=== PATIENT | male | born 1985 | race Caucasian/White ===

== ENCOUNTER 2016-10-14 21:26 | Emergency (ER) | payer OTHER ==
[~2016-10-14] VITALS: Ht 182.9 cm; Wt 86.4 kg
[~2016-10-14 21:26] MED LIST: ABILIFY 15MG TA15 MG; ADDERALL30 MG PO; AMBIEN10 MG PO; AMOXICILLIN 50500 MG PO; BACTRIM DS 8001 TAB PO; CELEXA; DESYREL 50MG50 MG PO; NAPROSYN500 MG PO; NEXIUM 20MG20 MG PO; NORCO 325 MG-51 TAB PO; PERCOCET 325 MG1 TA2 PO; SOMA; VICODIN 5/5001 UDTAB PO; VISTARIL50 MG PO; ZOFRAN ODT4 MG PO
[2016-10-14 21:28] VITALS: BP 134/92; PULSE 86; TEMP 98.1
[2016-10-14] MEDS ORDERED: DOXYCYCLINE 10100 MG PO (23:10)
== END 2016-10-14 23:39 | disposition home or self-care (01) ==
LOC: COL.ER 21:26
DX: L03.031 Cellulitis of right toe (principal); Z86.14 Personal history of Methicillin resistant Staphylococcus aureus infection

== ENCOUNTER 2016-12-08 23:07 | Emergency (ER) | payer OTHER ==
[~2016-12-08] VITALS: Ht 182.9 cm; Wt 86.4 kg
[~2016-12-08 23:07] MED LIST changes: +DOXYCYCLINE 10100 MG PO
[2016-12-08 23:11] VITALS: TEMP 97.9
[2016-12-08 23:52] LABS: BASO # 0.1 (0.0-0.2); BASO % 0.7 % (0.0-2.0); EOS # 0.6 (0.0-0.7); GRAN % 53.8 % (42.2-75.2); HEMATOCRIT 42.7 % (42.0-52.0); HEMOGLOBIN 14.9 g/dl (13.5-18.0); LYMPH # 2.2 (1.2-3.4); MEAN CELL VOLUME 85 fl (80.0-100.0); MEAN CORPUSCULAR HEMOGLOBIN 30 pg (27.0-31.0); MEAN CORPUSCULAR HGB CONC 35 g/dl (33.0-37.0); MEAN PLATELET VOLUME 10.2 fl (7.4-10.4); MONO # 0.6 (0.1-0.6); MONO % 8.4 % (1.7-9.3); PLATELET COUNT 212 K/mm3 (130-400); RED BLOOD COUNT 5.05 M/mm3 (4.20-5.60); REDCELL DISTRIBUTION WIDTH-CV 13.2 % (11.5-14.5); WHITE BLOOD COUNT 7.4 K/mm3 (4.8-10.8)
[2016-12-09 00:02] LABS: PH 5 (5-8); SQUAMOUS EPITHELIAL None Seen /hpf; URINE APPEARANCE Clear; URINE BACTERIA None Seen /hpf; URINE BILIRUBIN Negative (NEGATIVE); URINE BLOOD Negative (NEGATIVE); URINE COLOR Yellow; URINE GLUCOSE Negative (NEGATIVE); URINE KETONE Negative (NEGATIVE); URINE RBC 0-2 /hpf; URINE UROBILINOGEN Negative (NEGATIVE); URINE WBC 0-2 /hpf
[2016-12-09 00:09] LABS: ADJUSTED CALCIUM 8.9 mg/dL (8.4-10.2); ALBUMIN 4.3 gm/dL (3.5-5.0); BILIRUBIN,TOTAL 0.5 mg/dL (0.0-1.0); CALCIUM 9.1 mg/dL (8.4-10.2); CREATININE, serum 0.87 mg/dL (0.66-1.25); POTASSIUM 3.5 mmol/L (3.4-5.0); TOTAL PROTEIN 7.4 gm/dL (6.4-8.2)
[2016-12-09] MEDS ORDERED: VOLTAREN 75 DR75 MG PO (00:25)
[2016-12-09 00:43] VITALS: BP 136/85; PULSE 97
== END 2016-12-09 00:46 | disposition home or self-care (01) ==
LOC: COL.ER 23:07
PROVIDERS: Emergency Medicine
DX: M54.5 Low back pain (principal); R10.31 Right lower quadrant pain; R10.32 Left lower quadrant pain; R11.0 Nausea; Z87.11 Personal history of peptic ulcer disease
CPT/HCPCS: J1885; J2765; J3010; J7030

== ENCOUNTER 2017-03-23 22:21 | Emergency (ER) | payer OTHER ==
[~2017-03-23] VITALS: Ht 182.9 cm; Wt 88.6 kg
[~2017-03-23 22:21] MED LIST changes: +VOLTAREN 75 DR75 MG PO
[2017-03-23 22:22] VITALS: BP 139/94; TEMP 98.4
[2017-03-23 22:52] LABS: BASO % 0.5 % (0.0-2.0); EOS # 0.5 (0.0-0.7); EOS % 6.3 % (0-4.0); GRAN # 5.1 (1.4-6.5); GRAN % 60.3 % (42.2-75.2); HEMATOCRIT 41.6 % (42.0-52.0); HEMOGLOBIN 14.4 g/dl (13.5-18.0); LYMPH # 2.1 (1.2-3.4); LYMPH % 25.2 % (20.0-51.0); MEAN CELL VOLUME 86 fl (80.0-100.0); MEAN CORPUSCULAR HEMOGLOBIN 30 pg (27.0-31.0); MEAN CORPUSCULAR HGB CONC 35 g/dl (33.0-37.0); MEAN PLATELET VOLUME 10.1 fl (7.4-10.4); MONO # 0.6 (0.1-0.6); MONO % 7.6 % (1.7-9.3); PLATELET COUNT 216 K/mm3 (130-400); RED BLOOD COUNT 4.85 M/mm3 (4.20-5.60); REDCELL DISTRIBUTION WIDTH-CV 13.6 % (11.5-14.5); WHITE BLOOD COUNT 8.4 K/mm3 (4.8-10.8)
[2017-03-23 23:03] LABS: ADJUSTED CALCIUM 8.8 mg/dL (8.4-10.2); ALBUMIN 4.1 gm/dL (3.5-5.0); BILIRUBIN,TOTAL 0.4 mg/dL (0.0-1.0); CALCIUM 8.9 mg/dL (8.4-10.2); CREATININE, serum 0.83 mg/dL (0.66-1.25); POTASSIUM 3.6 mmol/L (3.4-5.0); TOTAL PROTEIN 7.3 gm/dL (6.4-8.2)
[2017-03-23 23:46] VITALS: PULSE 67
== END 2017-03-23 23:46 | disposition home or self-care (01) ==
LOC: COL.ER 22:21
PROVIDERS: Emergency Medicine
DX: M54.2 Cervicalgia (principal); Z87.19 Personal history of other diseases of the digestive system
CPT/HCPCS: J2765; J3010; J7030; Q9967

== ENCOUNTER 2017-04-12 02:18 | Emergency (ER) | payer OTHER ==
[~2017-04-12] VITALS: Ht 182.9 cm; Wt 86.2 kg
[2017-04-12 02:20] VITALS: BP 127/82; TEMP 97.4
[2017-04-12 03:22] LABS: BASO % 0.4 % (0.0-2.0); EOS # 0.4 (0.0-0.7); EOS % 6.3 % (0-4.0); GRAN # 3.6 (1.4-6.5); HEMATOCRIT 39.5 % (42.0-52.0); HEMOGLOBIN 13.8 g/dl (13.5-18.0); LYMPH # 2.2 (1.2-3.4); LYMPH % 32.5 % (20.0-51.0); MEAN CELL VOLUME 84 fl (80.0-100.0); MEAN CORPUSCULAR HEMOGLOBIN 29 pg (27.0-31.0); MEAN CORPUSCULAR HGB CONC 35 g/dl (33.0-37.0); MEAN PLATELET VOLUME 10.3 fl (7.4-10.4); MONO # 0.6 (0.1-0.6); MONO % 8.7 % (1.7-9.3); PLATELET COUNT 223 K/mm3 (130-400); RED BLOOD COUNT 4.73 M/mm3 (4.20-5.60); REDCELL DISTRIBUTION WIDTH-CV 13.2 % (11.5-14.5); WHITE BLOOD COUNT 6.9 K/mm3 (4.8-10.8)
[2017-04-12 03:31] LABS: ANION GAP 12 mmol/L (7-16); BLOOD UREA NITROGEN 11 mg/dL (9-20); CALCIUM 9.3 mg/dL (8.4-10.2); CARBON DIOXIDE 24 mmol/L (22-30); CHLORIDE 107 mmol/L (98-107); CREATININE, serum 0.95 mg/dL (0.66-1.25); GLUCOSE 90 mg/dL (74-106); POTASSIUM 3.5 mmol/L (3.4-5.0); SODIUM 142 mmol/L (137-145)
[2017-04-12 03:43] LABS: TROPONIN-I < 0.012 ng/mL (0.000-0.034)
[2017-04-12] MEDS ORDERED: VENTOLIN0.09 MG IH (04:18)
[2017-04-12 04:30] VITALS: PULSE 66
== END 2017-04-12 04:31 | disposition home or self-care (01) ==
LOC: COL.ER 02:18
PROVIDERS: Emergency Medicine
DX: R07.89 Other chest pain (principal); I10 Essential (primary) hypertension; E78.5 Hyperlipidemia, unspecified; Z82.49 Family history of ischemic heart disease and other diseases of the circulatory system

== ENCOUNTER 2017-04-26 17:53 | Emergency (ER) | payer OTHER ==
[~2017-04-26] VITALS: Ht 182.9 cm; Wt 86.4 kg
[~2017-04-26 17:53] MED LIST changes: +VENTOLIN0.09 MG IH
[2017-04-26 18:04] VITALS: TEMP 98.1
[2017-04-26] MEDS ORDERED: CRUTCHES MC ×2 (19:09→19:14)
[2017-04-26 19:27] VITALS: BP 136/78; PULSE 93
== END 2017-04-26 19:30 | disposition home or self-care (01) ==
LOC: COL.ER 17:53
DX: S86.911A Strain of unspecified muscle(s) and tendon(s) at lower leg level, right leg, initial encounter (principal); F31.9 Bipolar disorder, unspecified; F41.9 Anxiety disorder, unspecified; K21.9 Gastro-esophageal reflux disease without esophagitis; F17.210 Nicotine dependence, cigarettes, uncomplicated; Z86.79 Personal history of other diseases of the circulatory system; Z87.19 Personal history of other diseases of the digestive system; Z98.52 Vasectomy status; W17.89XA Other fall from one level to another, initial encounter; X50.0XXA Overexertion from strenuous movement or load, initial encounter; Y92.009 Unspecified place in unspecified non-institutional (private) residence as the place of occurrence of the external cause
CPT/HCPCS: J1885; L1830

== ENCOUNTER 2017-06-02 20:39 | Emergency (ER) | payer OTHER, BC ==
[~2017-06-02] VITALS: Ht 182.9 cm; Wt 86.4 kg
[~2017-06-02 20:39] MED LIST changes: +CRUTCHES MC
[2017-06-02 20:47] VITALS: TEMP 99.2
[2017-06-02 21:30] LABS: BASO % 0.5 % (0.0-2.0); EOS # 0.4 (0.0-0.7); EOS % 5.7 % (0-4.0); GRAN # 4.6 (1.4-6.5); HEMATOCRIT 40.3 % (42.0-52.0); HEMOGLOBIN 13.8 g/dl (13.5-18.0); LYMPH # 1.9 (1.2-3.4); LYMPH % 25.3 % (20.0-51.0); MEAN CELL VOLUME 88 fl (80.0-100.0); MEAN CORPUSCULAR HEMOGLOBIN 30 pg (27.0-31.0); MEAN CORPUSCULAR HGB CONC 34 g/dl (33.0-37.0); MEAN PLATELET VOLUME 10.5 fl (7.4-10.4); MONO # 0.5 (0.1-0.6); MONO % 7.1 % (1.7-9.3); PLATELET COUNT 199 K/mm3 (130-400); REDCELL DISTRIBUTION WIDTH-CV 13.2 % (11.5-14.5); WHITE BLOOD COUNT 7.6 K/mm3 (4.8-10.8)
[2017-06-02 21:48] LABS: ADJUSTED CALCIUM 9.1 mg/dL (8.4-10.2); ALBUMIN 4.1 gm/dL (3.5-5.0); BILIRUBIN,TOTAL 0.3 mg/dL (0.0-1.0); CALCIUM 9.2 mg/dL (8.4-10.2); CREATININE, serum 0.92 mg/dL (0.66-1.25); POTASSIUM 3.5 mmol/L (3.4-5.0); TOTAL PROTEIN 7.4 gm/dL (6.4-8.2)
[2017-06-02 23:35] LABS: PH 7 (5-8); SQUAMOUS EPITHELIAL None Seen /hpf; URINE APPEARANCE Clear; URINE BACTERIA None Seen /hpf; URINE BILIRUBIN Negative (NEGATIVE); URINE BLOOD Negative (NEGATIVE); URINE COLOR Yellow; URINE GLUCOSE Negative (NEGATIVE); URINE KETONE Negative (NEGATIVE); URINE RBC 0-2 /hpf; URINE WBC None Seen /hpf
[2017-06-03] MEDS ORDERED: LEVAQUIN 5500 MG/TA1 PO
[2017-06-03] MEDS ORDERED: NORCO 325 MG-51 TAB PO (00:01)
[2017-06-03 00:04] LABS: CHLAMYDIA/TRACH by PCR Male NOT DETECTED; Neisseria Gon by PCR Male NOT DETECTED
[2017-06-03 00:12] VITALS: BP 125/83; PULSE 84
== END 2017-06-03 00:18 | disposition other institution (70) ==
LOC: COL.ER 20:39
PROVIDERS: Emergency Medicine
DX: N50.82 Scrotal pain (principal); R10.9 Unspecified abdominal pain; F17.210 Nicotine dependence, cigarettes, uncomplicated; Z98.52 Vasectomy status
CPT/HCPCS: J1885; J3010; J7030; Q9967

== ENCOUNTER 2017-06-05 17:16 | Emergency (ER) | payer OTHER, BC ==
[~2017-06-05] VITALS: Ht 182.9 cm; Wt 84.1 kg
[~2017-06-05 17:16] MED LIST changes: +LEVAQUIN 5500 MG/TA1 PO
[2017-06-05 17:29] VITALS: BP 131/80; TEMP 99
[2017-06-05 18:34] LABS: PH 6 (5-8); SQUAMOUS EPITHELIAL None Seen /hpf; URINE APPEARANCE Clear; URINE BACTERIA None Seen /hpf; URINE BILIRUBIN Negative (NEGATIVE); URINE BLOOD Negative (NEGATIVE); URINE COLOR Yellow; URINE GLUCOSE Negative (NEGATIVE); URINE KETONE Negative (NEGATIVE); URINE RBC 0-2 /hpf; URINE UROBILINOGEN Negative (NEGATIVE); URINE WBC 0-2 /hpf
[2017-06-05 19:08] VITALS: PULSE 70
== END 2017-06-05 19:12 | disposition home or self-care (01) ==
LOC: COL.ER 17:16
PROVIDERS: Physician Assistant
DX: N50.812 Left testicular pain (principal); F17.210 Nicotine dependence, cigarettes, uncomplicated
CPT/HCPCS: J1170

== ENCOUNTER 2017-06-09 20:36 | Emergency (ER) | payer OTHER, BC ==
[~2017-06-09] VITALS: Ht 182.9 cm; Wt 84.1 kg
[2017-06-09 20:41] VITALS: BP 133/79; PULSE 96; TEMP 98.7
[2017-06-09] MEDS ORDERED: LEVAQUIN 5500 MG/TA1 PO (20:45)
== END 2017-06-09 21:28 | disposition home or self-care (01) ==
LOC: COL.ER 20:36
DX: S86.911A Strain of unspecified muscle(s) and tendon(s) at lower leg level, right leg, initial encounter (principal); X50.0XXA Overexertion from strenuous movement or load, initial encounter; Y92.008 Other place in unspecified non-institutional (private) residence as the place of occurrence of the external cause

== ENCOUNTER 2017-07-06 16:14 | Emergency (ER) | payer OTHER, BC ==
[~2017-07-06] VITALS: Ht 182.9 cm; Wt 84.1 kg
[2017-07-06 16:17] VITALS: TEMP 99.2
[2017-07-06 16:49] LABS: BASO % 0.4 % (0.0-2.0); EOS # 0.3 (0.0-0.7); EOS % 3.2 % (0-4.0); GRAN # 6.5 (1.4-6.5); GRAN % 72.1 % (42.2-75.2); HEMATOCRIT 43.9 % (42.0-52.0); LYMPH # 1.6 (1.2-3.4); LYMPH % 17.3 % (20.0-51.0); MEAN CELL VOLUME 87 fl (80.0-100.0); MEAN CORPUSCULAR HEMOGLOBIN 30 pg (27.0-31.0); MEAN CORPUSCULAR HGB CONC 34 g/dl (33.0-37.0); MEAN PLATELET VOLUME 10.2 fl (7.4-10.4); MONO # 0.6 (0.1-0.6); MONO % 6.7 % (1.7-9.3); PLATELET COUNT 224 K/mm3 (130-400); RED BLOOD COUNT 5.07 M/mm3 (4.20-5.60)
[2017-07-06 16:55] LABS: COLLECTION METHOD CLEAN CATCH
[2017-07-06 17:00] LABS: BILIRUBIN,TOTAL 0.4 mg/dL (0.0-1.0); CALCIUM 9.8 mg/dL (8.4-10.2); CREATININE, serum 0.89 mg/dL (0.66-1.25); POTASSIUM 4.1 mmol/L (3.4-5.0); TOTAL PROTEIN 8.2 gm/dL (6.4-8.2)
[2017-07-06 17:02] LABS: PH 6 (5-8); SQUAMOUS EPITHELIAL None Seen /hpf; URINE APPEARANCE Clear; URINE BACTERIA None Seen /hpf; URINE BILIRUBIN Negative (NEGATIVE); URINE BLOOD Negative (NEGATIVE); URINE COLOR Yellow; URINE GLUCOSE Negative (NEGATIVE); URINE KETONE Negative (NEGATIVE); URINE LEUKOCYTE ESTERASE Negative (NEGATIVE); URINE PROTEIN(semi-quant) Negative (NEGATIVE); URINE RBC None Seen /hpf; URINE UROBILINOGEN Negative (NEGATIVE); URINE WBC None Seen /hpf
[2017-07-06 18:22] VITALS: BP 119/76; PULSE 76
== END 2017-07-06 18:30 | disposition home or self-care (01) ==
LOC: COL.ER 16:14
PROVIDERS: Emergency Medicine
DX: R10.12 Left upper quadrant pain (principal); F17.210 Nicotine dependence, cigarettes, uncomplicated; Z98.52 Vasectomy status
CPT/HCPCS: J1630; J2270; J2405; J7030

== ENCOUNTER 2017-07-08 01:19 | Emergency (ER) | payer OTHER, BC ==
[~2017-07-08] VITALS: Ht 182.9 cm; Wt 84.1 kg
[2017-07-08 01:23] VITALS: TEMP 97.6
[2017-07-08 02:18] LABS: BASO % 0.4 % (0.0-2.0); EOS # 0.4 (0.0-0.7); EOS % 4.4 % (0-4.0); GRAN % 61.5 % (42.2-75.2); HEMATOCRIT 42.8 % (42.0-52.0); HEMOGLOBIN 14.9 g/dl (13.5-18.0); LYMPH % 24.2 % (20.0-51.0); MEAN CELL VOLUME 85 fl (80.0-100.0); MEAN CORPUSCULAR HEMOGLOBIN 30 pg (27.0-31.0); MEAN CORPUSCULAR HGB CONC 35 g/dl (33.0-37.0); MEAN PLATELET VOLUME 10.5 fl (7.4-10.4); MONO # 0.8 (0.1-0.6); MONO % 9.3 % (1.7-9.3); PLATELET COUNT 216 K/mm3 (130-400); RED BLOOD COUNT 5.04 M/mm3 (4.20-5.60); WHITE BLOOD COUNT 8.1 K/mm3 (4.8-10.8)
[2017-07-08 02:23] LABS: ALBUMIN 4.5 gm/dL (3.5-5.0); BILIRUBIN,TOTAL 0.5 mg/dL (0.0-1.0); C-REACTIVE PROTEIN 1.6 mg/dL (0.0-0.9); CALCIUM 9.4 mg/dL (8.4-10.2); CREATININE, serum 0.85 mg/dL (0.66-1.25); POTASSIUM 3.8 mmol/L (3.4-5.0); TOTAL PROTEIN 7.7 gm/dL (6.4-8.2)
[2017-07-08] MEDS ORDERED: PHENERGAN 25 TA25 MG PO (02:31)
[2017-07-08] MEDS ORDERED: NEXIUM 40MG40 MG PO (03:53)
[2017-07-08 04:42] VITALS: BP 124/85; PULSE 87
== END 2017-07-08 04:42 | disposition home or self-care (01) ==
LOC: COL.ER 01:19
PROVIDERS: Emergency Medicine
DX: R10.13 Epigastric pain (principal)
CPT/HCPCS: C9113; J1885; J2550; J7030

== ENCOUNTER 2018-01-01 18:25 | Emergency (ER) | payer OTHER, BC ==
[~2018-01-01] VITALS: Ht 182.9 cm; Wt 86.8 kg
[~2018-01-01 18:25] MED LIST changes: +NEXIUM 40MG40 MG PO; +PHENERGAN 25 TA25 MG PO
[2018-01-01 18:35] VITALS: BP 133/80; TEMP 97.8
[2018-01-01 21:07] VITALS: PULSE 80
== END 2018-01-01 20:41 | disposition home or self-care (01) ==
LOC: COL.ER 18:25
DX: S83.92XA Sprain of unspecified site of left knee, initial encounter (principal); S90.32XA Contusion of left foot, initial encounter; W01.0XXA Fall on same level from slipping, tripping and stumbling without subsequent striking against object, initial encounter; X50.0XXA Overexertion from strenuous movement or load, initial encounter; Y92.009 Unspecified place in unspecified non-institutional (private) residence as the place of occurrence of the external cause
CPT/HCPCS: J1885

== ENCOUNTER 2018-01-14 19:12 | Emergency (ER) | payer OTHER, BC ==
[~2018-01-14] VITALS: Ht 182.9 cm; Wt 89.5 kg
[2018-01-14 19:16] VITALS: BP 120/72; TEMP 97.3
[2018-01-14] MEDS ORDERED: ZOVIRAX800 MG PO (20:24)
[2018-01-14 20:40] VITALS: PULSE 88
== END 2018-01-14 20:41 | disposition home or self-care (01) ==
LOC: COL.ER 19:12
DX: B02.9 Zoster without complications (principal)

== ENCOUNTER 2018-03-15 01:38 | Emergency (ER) | payer OTHER, BC ==
[~2018-03-15] VITALS: Ht 182.9 cm; Wt 86.9 kg
[~2018-03-15 01:38] MED LIST changes: +ZOVIRAX800 MG PO
[2018-03-15 01:39] VITALS: BP 139/82; PULSE 97; TEMP 98
[2018-03-15] MEDS ORDERED: ZOVIRAX400 MG PO (02:26)
== END 2018-03-15 02:50 | disposition home or self-care (01) ==
LOC: COL.ER 01:38
DX: M25.551 Pain in right hip (principal); K12.1 Other forms of stomatitis; F17.210 Nicotine dependence, cigarettes, uncomplicated; Y92.009 Unspecified place in unspecified non-institutional (private) residence as the place of occurrence of the external cause

== ENCOUNTER 2018-03-20 15:40 | Emergency (ER) | payer OTHER, BC ==
[~2018-03-20] VITALS: Ht 182.9 cm; Wt 86.8 kg
[~2018-03-20 15:40] MED LIST changes: +ZOVIRAX400 MG PO
[2018-03-20 15:49] VITALS: BP 129/79; TEMP 99.2
[2018-03-20] MEDS ORDERED: PREDNISONE20 MG PO (16:22)
[2018-03-20 16:26] VITALS: PULSE 76
== END 2018-03-20 16:30 | disposition home or self-care (01) ==
LOC: COL.ER 15:40
DX: M25.551 Pain in right hip (principal); M25.561 Pain in right knee; F31.9 Bipolar disorder, unspecified; F41.9 Anxiety disorder, unspecified; F17.210 Nicotine dependence, cigarettes, uncomplicated; Z98.52 Vasectomy status

== ENCOUNTER 2018-05-19 00:13 | Emergency (ER) | payer OTHER ==
[~2018-05-19] VITALS: Ht 182.9 cm; Wt 84.1 kg
[~2018-05-19 00:13] MED LIST changes: +PREDNISONE20 MG PO
[2018-05-19 00:20] VITALS: BP 137/64; PULSE 62; TEMP 99.3
[2018-05-19] MEDS ORDERED: NORCO 325 MG-51 TAB PO (00:42)
[2018-05-19] MEDS ORDERED: MEDROL 4MG DOSPA4 MG PO (00:42)
== END 2018-05-19 01:08 | disposition home or self-care (01) ==
LOC: COL.ER 00:13
DX: M54.41 Lumbago with sciatica, right side (principal); F17.210 Nicotine dependence, cigarettes, uncomplicated; Z88.8 Allergy status to other drugs, medicaments and biological substances
CPT/HCPCS: J7512

== ENCOUNTER 2018-11-30 01:20 | Emergency (ER) | payer OTHER ==
[~2018-11-30] VITALS: Ht 182.9 cm; Wt 92.7 kg
[~2018-11-30 01:20] MED LIST changes: +CIPRO 500MG TA500 MG PO; +MEDROL 4MG DOSPA4 MG PO
[2018-11-30 01:31] VITALS: TEMP 98.8
[2018-11-30 02:04] LABS: BASO % 0.4 % (0.0-2.0); EOS # 0.3 (0.0-0.7); EOS % 3.4 % (0-4.0); GRAN # 5.9 (1.4-6.5); HEMATOCRIT 41.9 % (42.0-52.0); HEMOGLOBIN 14.4 g/dl (13.5-18.0); LYMPH # 1.4 (1.2-3.4); LYMPH % 16.8 % (20.0-51.0); MEAN CELL VOLUME 86 fl (80.0-100.0); MEAN CORPUSCULAR HEMOGLOBIN 29 pg (27.0-31.0); MEAN CORPUSCULAR HGB CONC 34 g/dl (33.0-37.0); MEAN PLATELET VOLUME 10.3 fl (7.4-10.4); MONO # 0.6 (0.1-0.6); MONO % 7.2 % (1.7-9.3); PLATELET COUNT 218 K/mm3 (130-400); RED BLOOD COUNT 4.89 M/mm3 (4.20-5.60)
[2018-11-30 02:18] LABS: ALBUMIN 4.3 gm/dL (3.5-5.0); BILIRUBIN,TOTAL 0.2 mg/dL (0.0-1.0); CALCIUM 9.2 mg/dL (8.4-10.2); CREATININE, serum 0.89 (0.66-1.25); TOTAL PROTEIN 7.7 gm/dL (6.4-8.2)
[2018-11-30 02:26] LABS: C-REACTIVE PROTEIN 0.5 mg/dL (0.0-0.9)
[2018-11-30 03:05] LABS: COLLECTION METHOD CLEAN CATCH
[2018-11-30 03:11] LABS: PH 8 (5-8); SQUAMOUS EPITHELIAL None Seen /hpf; URINE APPEARANCE Clear; URINE BACTERIA None Seen /hpf; URINE BILIRUBIN Negative (NEGATIVE); URINE BLOOD Negative (NEGATIVE); URINE COLOR Yellow; URINE GLUCOSE Negative (NEGATIVE); URINE KETONE Negative (NEGATIVE); URINE LEUKOCYTE ESTERASE Negative (NEGATIVE); URINE NITRATE Negative (NEGATIVE); URINE PROTEIN(semi-quant) Negative (NEGATIVE); URINE RBC 0-2 /hpf; URINE UROBILINOGEN Negative (NEGATIVE)
[2018-11-30] MEDS ORDERED: NORCO 325 MG-51 TAB PO (04:30)
[2018-11-30] MEDS ORDERED: DOXYCYCLINE 10100 MG PO (04:30)
[2018-11-30] MEDS ORDERED: PHENERGAN 25 TA25 MG PO (04:30)
[2018-11-30 05:35] VITALS: BP 116/71; PULSE 74
== END 2018-11-30 05:35 | disposition home or self-care (01) ==
LOC: COL.ER 01:20
PROVIDERS: Emergency Medicine
DX: J18.9 Pneumonia, unspecified organism (principal); R10.30 Lower abdominal pain, unspecified; F17.210 Nicotine dependence, cigarettes, uncomplicated
CPT/HCPCS: J1170; J2405; J7030; Q9967

== ENCOUNTER 2018-12-04 01:47 | Emergency (ER) | payer OTHER ==
[~2018-12-04] VITALS: Ht 182.9 cm; Wt 90.9 kg
[2018-12-04 01:55] VITALS: TEMP 97.8
[2018-12-04 02:16] LABS: BASO # 0.1 (0.0-0.2); BASO % 0.6 % (0.0-2.0); EOS # 0.4 (0.0-0.7); EOS % 4.5 % (0-4.0); GRAN # 4.8 (1.4-6.5); GRAN % 61.2 % (42.2-75.2); HEMATOCRIT 42.3 % (42.0-52.0); HEMOGLOBIN 14.5 g/dl (13.5-18.0); LYMPH % 25.4 % (20.0-51.0); MEAN CELL VOLUME 86 fl (80.0-100.0); MEAN CORPUSCULAR HEMOGLOBIN 29 pg (27.0-31.0); MEAN CORPUSCULAR HGB CONC 34 g/dl (33.0-37.0); MEAN PLATELET VOLUME 10.2 fl (7.4-10.4); MONO # 0.6 (0.1-0.6); MONO % 7.9 % (1.7-9.3); PLATELET COUNT 250 K/mm3 (130-400); RED BLOOD COUNT 4.94 M/mm3 (4.20-5.60); REDCELL DISTRIBUTION WIDTH-CV 13.9 % (11.5-14.5)
[2018-12-04 02:20] LABS: COLLECTION METHOD CLEAN CATCH
[2018-12-04 02:26] LABS: ALANINE AMINOTRANSFERASE 27 U/L (21-72); ALBUMIN 4.3 gm/dL (3.5-5.0); ALKALINE PHOSPHATASE 64 U/L (50-136); ANION GAP 9 mmol/L (7-16); AST,SGOT 23 U/L (15-37); BILIRUBIN,TOTAL 0.3 mg/dL (0.0-1.0); BLOOD UREA NITROGEN 12 mg/dL (9-20); CALCIUM 9.1 mg/dL (8.4-10.2); CARBON DIOXIDE 24 mmol/L (22-30); CHLORIDE 109 mmol/L (98-107); CREATININE, serum 1.04 (0.66-1.25); GLUCOSE 115 mg/dL (74-106); LIPASE 55 U/L (23-300); POTASSIUM 3.7 mmol/L (3.4-5.0); SODIUM 142 mmol/L (137-145); TOTAL PROTEIN 7.7 gm/dL (6.4-8.2)
[2018-12-04 02:26] LABS: MUCOUS Present /lpf; PH 5 (5-8); SQUAMOUS EPITHELIAL None Seen /hpf; URINE APPEARANCE Clear; URINE BACTERIA None Seen /hpf; URINE BILIRUBIN Negative (NEGATIVE); URINE BLOOD Negative (NEGATIVE); URINE COLOR Yellow; URINE GLUCOSE Negative (NEGATIVE); URINE KETONE Negative (NEGATIVE); URINE LEUKOCYTE ESTERASE Negative (NEGATIVE); URINE NITRATE Negative (NEGATIVE); URINE PROTEIN(semi-quant) Negative (NEGATIVE); URINE RBC 0-2 /hpf; URINE UROBILINOGEN Negative (NEGATIVE)
[2018-12-04 02:34] LABS: C-REACTIVE PROTEIN 0.5 mg/dL (0.0-0.9); TROPONIN-I < 0.012 ng/mL (0.000-0.035)
[2018-12-04] MEDS ORDERED: PHENERGAN W/CO120 M1 PO (03:35)
[2018-12-04 03:55] VITALS: BP 128/81; PULSE 88
== END 2018-12-04 04:09 | disposition home or self-care (01) ==
LOC: COL.ER 01:47
PROVIDERS: Emergency Medicine
DX: J40 Bronchitis, not specified as acute or chronic (principal); F17.210 Nicotine dependence, cigarettes, uncomplicated; Z98.52 Vasectomy status
CPT/HCPCS: J1100; J1885; J7030

== ENCOUNTER 2019-07-28 02:45 | Emergency (ER) | payer OTHER ==
[~2019-07-28] VITALS: Ht 182.9 cm; Wt 86.4 kg
[~2019-07-28 02:45] MED LIST changes: +PHENERGAN W/CO120 M1 PO
[2019-07-28 02:47] VITALS: BP 125/95; TEMP 98.2
[2019-07-28 03:13] LABS: BASO % 0.4 % (0.0-2.0); EOS # 0.4 (0.0-0.7); EOS % 3.4 % (0-4.0); GRAN % 58.8 % (42.2-75.2); HEMOGLOBIN 14.5 g/dl (13.5-18.0); LYMPH # 2.8 (1.2-3.4); LYMPH % 27.7 % (20.0-51.0); MEAN CELL VOLUME 86 fl (80.0-100.0); MEAN CORPUSCULAR HEMOGLOBIN 30 pg (27.0-31.0); MEAN CORPUSCULAR HGB CONC 35 g/dl (33.0-37.0); MEAN PLATELET VOLUME 10.2 fl (7.4-10.4); MONO % 9.5 % (1.7-9.3); PLATELET COUNT 272 K/mm3 (130-400); RED BLOOD COUNT 4.89 M/mm3 (4.20-5.60); REDCELL DISTRIBUTION WIDTH-CV 13.2 % (11.5-14.5)
[2019-07-28 03:19] LABS: GASTROCCULT NEGATIVE; pH GASTRIC CONTENTS 3
[2019-07-28 03:24] LABS: PROTHROMBIN TIME 11.3 SECONDS (9.7-12.8)
[2019-07-28 03:27] LABS: PARTIAL THROMBOPLASTIN TIME 30.3 SECONDS (26.0-37.0)
[2019-07-28 03:33] LABS: ALBUMIN 3.7 gm/dL (3.5-5.0); BILIRUBIN,TOTAL 0.2 mg/dL (0.0-1.0); C-REACTIVE PROTEIN 0.6 mg/dL (0.0-0.9); CALCIUM 8.6 mg/dL (8.4-10.2); POTASSIUM 3.8 mmol/L (3.4-5.0); TOTAL PROTEIN 6.4 gm/dL (6.4-8.2)
[2019-07-28 03:34] LABS: COLLECTION METHOD CLEAN CATCH
[2019-07-28 03:40] LABS: MUCOUS Present /lpf; PH 5 (5-8); SQUAMOUS EPITHELIAL 0-2 /hpf; URINE APPEARANCE Clear; URINE BACTERIA None Seen /hpf; URINE BILIRUBIN Negative (NEGATIVE); URINE BLOOD 3+ (NEGATIVE); URINE COLOR Yellow; URINE GLUCOSE Negative (NEGATIVE); URINE KETONE Trace (NEGATIVE); URINE LEUKOCYTE ESTERASE Negative (NEGATIVE); URINE NITRATE Negative (NEGATIVE); URINE PROTEIN(semi-quant) Negative (NEGATIVE); URINE RBC >50 /hpf
[2019-07-28] MEDS ORDERED: ZOFRAN ODT4 MG PO (05:09)
[2019-07-28] MEDS ORDERED: NORCO 325 MG-51 TAB PO (05:09)
[2019-07-28 06:02] VITALS: PULSE 61
== END 2019-07-28 06:02 | disposition home or self-care (01) ==
LOC: COL.ER 02:45
PROVIDERS: Emergency Medicine
DX: N20.1 Calculus of ureter (principal); I72.8 Aneurysm of other specified arteries; F31.9 Bipolar disorder, unspecified; K27.9 Peptic ulcer, site unspecified, unspecified as acute or chronic, without hemorrhage or perforation; F17.210 Nicotine dependence, cigarettes, uncomplicated; Z87.19 Personal history of other diseases of the digestive system
CPT/HCPCS: C9113; J1170; J1885; J2405; J2550; J7030; Q9967

== ENCOUNTER 2019-07-30 16:21 | Emergency (ER) | payer OTHER ==
[~2019-07-30] VITALS: Ht 182.9 cm; Wt 86.4 kg
[2019-07-30 16:27] VITALS: TEMP 97.2
[2019-07-30 17:32] LABS: COLLECTION METHOD CLEAN CATCH
[2019-07-30 17:48] LABS: PH 7 (5-8); SQUAMOUS EPITHELIAL 0-2 /hpf; URINE APPEARANCE Clear; URINE BACTERIA None Seen /hpf; URINE BILIRUBIN Negative (NEGATIVE); URINE BLOOD Negative (NEGATIVE); URINE COLOR Yellow; URINE GLUCOSE Negative (NEGATIVE); URINE KETONE Negative (NEGATIVE); URINE LEUKOCYTE ESTERASE Negative (NEGATIVE); URINE NITRATE Negative (NEGATIVE); URINE PROTEIN(semi-quant) Negative (NEGATIVE); URINE RBC 0-2 /hpf; URINE UROBILINOGEN Negative (NEGATIVE)
[2019-07-30] MEDS ORDERED: FLOMAX 0.40.4 MG/CAP PO (19:57)
[2019-07-30] MEDS ORDERED: PERCOCET 325 MG1 TA2 PO (19:57)
[2019-07-30 20:00] VITALS: BP 116/78; PULSE 72
== END 2019-07-30 20:15 | disposition home or self-care (01) ==
LOC: COL.ER 16:21
PROVIDERS: Emergency Medicine
DX: N20.2 Calculus of kidney with calculus of ureter (principal); F17.210 Nicotine dependence, cigarettes, uncomplicated; F31.9 Bipolar disorder, unspecified; F41.9 Anxiety disorder, unspecified; Z98.890 Other specified postprocedural states
CPT/HCPCS: J1885; J2060; J3010; J7030; Q9967

== ENCOUNTER 2019-08-03 12:59 | Observation (INO) | payer OTHER ==
[~2019-08-03] VITALS: Ht 182.9 cm; Wt 88.0 kg
[~2019-08-03 12:59] MED LIST changes: +FLOMAX 0.40.4 MG/CAP PO
--- NOTE | 2019-08-03 15:53 | NUR ---
Arrives to room from ER. Awake and alert. Anticipating to OR at 1630 for cysto and stone retreival by Dr. Gonzalez. Denies needs at this time, call light in reach.
[2019-08-03 15:59] VITALS: BP 120/78; PULSE 43; TEMP 98.9
--- NOTE | 2019-08-03 16:30 | NUR ---
To OR via bed with OR tech. Consent signed and on chart
[2019-08-03 17:47] VITALS: TEMP 97.8
--- NOTE | 2019-08-03 18:15 | NUR ---
Returns to room 326 via bed with RN at side. Awake and alert, asking for water. Complains of pain with urination. Denies needs at this time, call light in reach.
--- NOTE | 2019-08-03 19:11 | NUR ---
Report given to Naya SANCHEZ
[2019-08-03 20:14] VITALS: BP 125/72; PULSE 73
--- NOTE | 2019-08-03 21:35 | NUR ---
patient discharging to home with family. IV to L AC discontinued with no issues. bandaid applied. patient teaching done. dressed independently. ambulated to bathroom without difficulty. voided clear yellow urine with a small blood clot noted. ate sandwich and applesauce. patient discharged at 2019 via ambulatory with family accompanying patient. walked out by this nurse.
== END 2019-08-03 20:20 | disposition home or self-care (01) ==
LOC: COL.ER 12:59 → JCC 14:41 → SURG 15:55
PROVIDERS: ADMIT Urology
DX: N20.1 Calculus of ureter (principal); E78.00 Pure hypercholesterolemia, unspecified; F17.210 Nicotine dependence, cigarettes, uncomplicated; F41.9 Anxiety disorder, unspecified; Z86.14 Personal history of Methicillin resistant Staphylococcus aureus infection; Z88.8 Allergy status to other drugs, medicaments and biological substances; Z98.52 Vasectomy status
CPT/HCPCS: C1769; C2617; G0378; J0690; J1100; J1885; J1940; J2405; J2704; J3010; J7030; J7120; Q9967

== ENCOUNTER 2020-01-17 20:54 | Inpatient (IN) | payer OTHER ==
[~2020-01-17] VITALS: Ht 182.9 cm; Wt 92.4 kg
[2020-01-17 22:11] VITALS: PULSE 77; TEMP 98.5
[2020-01-17] MEDS ORDERED: ASPIRIN 32325 MG/TAB PO (22:30)
[2020-01-17 23:54] LABS: INR 1.1 (0.8-3.0); PROTHROMBIN TIME 11.9 SECONDS (9.7-12.8)
[2020-01-18 00:11] VITALS: BP 125/75; PULSE 69; TEMP 97.9
[2020-01-18 04:45] VITALS: BP 113/69; PULSE 67; TEMP 97.8
--- NOTE | 2020-01-18 05:46 | NUR ---
Patient arrived on the floor around 2200, alert and oriented. Patient NPO at this time, no nausea or vomiting this shift. Patient has not had a bowel movment shift. No complaints of dizziness or lightheadedness.
[2020-01-18 06:15] LABS: BASO % 0.4 % (0.0-2.0); EOS # 0.4 (0.0-0.7); EOS % 5.5 % (0-4.0); GRAN # 4.4 (1.4-6.5); GRAN % 62.5 % (42.2-75.2); HEMATOCRIT 40.3 % (42.0-52.0); HEMOGLOBIN 13.5 g/dl (13.5-18.0); LYMPH # 1.6 (1.2-3.4); LYMPH % 22.2 % (20.0-51.0); MEAN CELL VOLUME 86 fl (80.0-100.0); MEAN CORPUSCULAR HEMOGLOBIN 29 pg (27.0-31.0); MEAN CORPUSCULAR HGB CONC 34 g/dl (33.0-37.0); MEAN PLATELET VOLUME 9.8 fl (7.4-10.4); MONO # 0.6 (0.1-0.6); MONO % 9.1 % (1.7-9.3); PLATELET COUNT 217 K/mm3 (130-400); REDCELL DISTRIBUTION WIDTH-CV 13.4 % (11.5-14.5); RETIC # 0.06 M/mm3 (0.02-0.16); RETIC % 1.2 % (0.5-3.52)
[2020-01-18 06:23] LABS: IRON,SERUM 109 ug/dL (35-150)
[2020-01-18 06:26] LABS: ALBUMIN 3.8 gm/dL (3.5-5.0); BILIRUBIN,TOTAL 0.5 mg/dL (0.0-1.0); CALCIUM 8.8 mg/dL (8.4-10.2); CREATININE, serum 0.92 (0.66-1.25); POTASSIUM 3.8 mmol/L (3.4-5.0)
[2020-01-18 06:32] LABS: TOTAL IRON BINDING CAPACITY 345 ug/dL (261-462)
[2020-01-18 07:51] VITALS: BP 106/55; PULSE 66; TEMP 97.6
--- NOTE | 2020-01-18 09:27 | NUR ---
Pt resting in bed at this time. Pt alert and oriented x3. Pt states he is 6/10 pain to his upper abdomen that is intermittent and sharp. INT to left AC is patent and without s/s of infection. Pt denies any other needs at this time. Call light within reach. Will continue to monitor.
[2020-01-18 10:56] LABS: COLLECTION METHOD CLEAN CATCH
[2020-01-18 11:03] LABS: MUCOUS Present /lpf; PH 6 (5-8); SQUAMOUS EPITHELIAL None Seen /hpf; URINE APPEARANCE Clear; URINE BACTERIA None Seen /hpf; URINE BILIRUBIN Negative (NEGATIVE); URINE BLOOD Negative (NEGATIVE); URINE COLOR Yellow; URINE GLUCOSE Negative (NEGATIVE); URINE KETONE Negative (NEGATIVE); URINE LEUKOCYTE ESTERASE Negative (NEGATIVE); URINE NITRATE Negative (NEGATIVE); URINE PROTEIN(semi-quant) Negative (NEGATIVE); URINE RBC 0-2 /hpf; URINE UROBILINOGEN Negative (NEGATIVE)
[2020-01-18 11:42] VITALS: BP 113/68; PULSE 81; TEMP 98.5
--- NOTE | 2020-01-18 14:34 | NUR ---
SW met with the patient to discuss discharge plan. The patient lives in [place] with his , Kenyetta ([id number]#[phone]), and children. He reports independence with ADLs and has a cane. The patient's PCP is Dr. Natalie Simons and he receives his medications at [facility]. He reports no difficulties obtaining his meds. The patient does not have advanced directives completed and he was not interested in completing one at this time. The patient plans to return back home with his family upon discharge. No additional needs at this time.
[2020-01-18 15:59] VITALS: BP 125/74; PULSE 60; TEMP 98.3
--- NOTE | 2020-01-18 18:30 | NUR ---
Pt had uneventful shift. Complaints of pain to upper abdomen. PRN tylenol given x1 for headache. Zofran given x1 for nausea. IV to left ac patent and free of s/s of infection. Pt denies any other needs at this time. Call light within reach. Will continue to monitor.
--- NOTE | 2020-01-18 19:25 | NUR ---
Report given to LAURA Willis. Call light within reach.
--- NOTE | 2020-01-18 20:00 | NUR ---
PT resting in bed, drinking bowel prep solution. C/o of stomach pain due to frequent BM's, denied need for pain medication. Reminded PT that he will be NPO at midnight.
[2020-01-18 20:28] VITALS: BP 134/82; PULSE 66; TEMP 98.3
[2020-01-19] VITALS (13 sets, daily range): BP systolic 95–127; BP diastolic 49–88; PULSE 63–84; TEMP 97.3–98.6
--- NOTE | 2020-01-19 07:14 | NUR ---
Pt resting in bed at this time. Pt NPO. Pt states he is having 6/10 pain to upper abdomen that is sharp. IV to left AC patent and free of s/s of complications. Pt denies any other needs at this time. Call light within reach. Will continue to monitor.
[2020-01-19 09:01] LABS: BASO % 0.5 % (0.0-2.0); EOS # 0.3 (0.0-0.7); EOS % 4.4 % (0-4.0); GRAN # 4.2 (1.4-6.5); GRAN % 68.4 % (42.2-75.2); HEMATOCRIT 40.8 % (42.0-52.0); HEMOGLOBIN 13.7 g/dl (13.5-18.0); LYMPH # 1.2 (1.2-3.4); LYMPH % 18.9 % (20.0-51.0); MEAN CELL VOLUME 87 fl (80.0-100.0); MEAN CORPUSCULAR HEMOGLOBIN 29 pg (27.0-31.0); MEAN CORPUSCULAR HGB CONC 34 g/dl (33.0-37.0); MEAN PLATELET VOLUME 9.9 fl (7.4-10.4); MONO # 0.5 (0.1-0.6); MONO % 7.6 % (1.7-9.3); PLATELET COUNT 232 K/mm3 (130-400); RED BLOOD COUNT 4.68 M/mm3 (4.20-5.60); REDCELL DISTRIBUTION WIDTH-CV 13.7 % (11.5-14.5)
[2020-01-19 09:11] LABS: CALCIUM 8.6 mg/dL (8.4-10.2); CREATININE, serum 1.05 (0.66-1.25); POTASSIUM 3.9 mmol/L (3.4-5.0)
--- NOTE | 2020-01-19 17:20 | NUR ---
Discharge instructions provided to pt. Pt verbalized understanding of all discharge instructions provided. Pt denies any other questions at this time. IV to left AC discontinued. Pt escorted out by this RN.
== END 2020-01-19 17:20 | disposition home or self-care (01) | DRG 379 ==
LOC: MEDICAL 20:54
PROVIDERS: Internal Medicine Gastroenterology; Nurse Practitioner Family
PROC: 0DB98ZX Excision of Duodenum, Via Natural or Artificial Opening Endoscopic, Diagnostic (ICD-10-PCS; 2020-01-19)
PROC: 0DBB8ZX Excision of Ileum, Via Natural or Artificial Opening Endoscopic, Diagnostic (ICD-10-PCS; principal; 2020-01-19 09:30)
PROC: 0DBN8ZX Excision of Sigmoid Colon, Via Natural or Artificial Opening Endoscopic, Diagnostic (ICD-10-PCS; 2020-01-19 09:30)
DX: K92.1 Melena (principal); F31.9 Bipolar disorder, unspecified; F17.210 Nicotine dependence, cigarettes, uncomplicated; K29.80 Duodenitis without bleeding; K29.30 Chronic superficial gastritis without bleeding; Z87.442 Personal history of urinary calculi; Z98.52 Vasectomy status; Z87.11 Personal history of peptic ulcer disease
CPT/HCPCS: 99232-AI; 99239; A9512; C9113; J2704; J3010; J7030; J7120

== ENCOUNTER → 2020-12-29 | Outpatient (CLI) | payer OTHER ==
[~2020-12-29] MED LIST changes: +ASPIRIN 32325 MG/TAB PO
== END ==
LOC: COL.RAD 11:00
DX: I72.8 Aneurysm of other specified arteries (principal)
CPT/HCPCS: Q9967